=== PATIENT | female | born 1935 | race Two or more races ===

== ENCOUNTER 2017-08-24 06:10 | Day surgery (SDC) | payer MEDICARE, OTHER ==
[~2017-08-24] VITALS: Ht 144.8 cm; Wt 63.5 kg
[2017-08-24] VITALS (11 sets, daily range): BP systolic 125–158; BP diastolic 66–75
[2017-08-24] MEDS ORDERED: Propofol 200mg/20ml IV ONE (06:11)
[2017-08-24] MEDS ORDERED: Midazolam 2mg/2ml Inj ONE (06:11)
[2017-08-24] MEDS ORDERED: NS Irrig 1000ml ONE (06:11)
[2017-08-24] MEDS ORDERED: Sterile Water Irrig 1000ml IRRIG ONE (06:11)
[2017-08-24] MEDS ORDERED: fentaNYL 100 mcg/2 mL IV ONE (06:11)
[2017-08-24] MEDS ORDERED: Metoclopramide 10mg/2ml Inj ONE (06:11)
[2017-08-24] MEDS ORDERED: Bacitracin Oint 15gm Tube TOPIC ONE ×2 (06:44→06:45)
[2017-08-24] MEDS ORDERED: Dexamethasone 4mg/ml vial ONE (06:44)
[2017-08-24] MEDS ORDERED: Betadine 10% Oint 15gm TOPIC ONE (06:44)
[2017-08-24] MEDS ORDERED: Bupivacaine 0.5% Inj 30 ml vial INJ ONE (06:45)
[2017-08-24] MEDS ORDERED: Lidocaine 1% Plain 30 ml INJ ONE (06:45)
[2017-08-24] MEDS ORDERED: TIMOPTIC 0.5%1 EACH OP (07:08)
[2017-08-24] MEDS ORDERED: CRESTOR10 M2 ORAL (07:08)
[2017-08-24] MEDS ORDERED: PAZEO2.5 ML BOTH EYES (07:08)
[2017-08-24] MEDS ORDERED: LORATADINE10 M3 PO (07:08)
[2017-08-24] MEDS ORDERED: PLAVIX75 MG ORAL (07:08)
--- NOTE | 2017-08-24 07:43 | Pre-Procedure Note/Attestation ---
Pre-Procedure Note/Attestation Complete Prior to Procedure Planned Procedure: right Procedure Narrative: Bunionectomy osteotomy right foot Hammertoe correction second right digit Tenotomy and capsulotomy second right MPJ Indications for Procedure Pre-Operative Diagnosis: Hallux Valgus right foot Hammertoe deformity right foot Contracture second right MPJ Attestation I attest that I discussed the nature of the procedure; its benefits; risks and complications; and alternatives (and the risks and benefits of such alternatives ), prior to the procedure, with the patient (or the patient's legal telephone claims representative). I attest that, if there was a reasonable possibility of needing a blood transfusion, the patient (or the patient's legal telephone claims representative) was given the [place] [employer] standardized written summary, pursuant to the [place] Derek Blood Safety Act ([place] Health and Safety Code # 1645, as amended). I attest that I re-evaluated the patient just prior to the surgery and that there has been no change in the patient's H&P, except as documented below: JAYESH BUI Aug 24, 2017 07:43
--- NOTE | 2017-08-24 08:07 | Anethesia Preoperative Eval ---
Anesthesia Pre-op PMH/ROS General Date of Evaluation: Aug 24, 2017 Time of Evaluation: 08:03 Anesthesiologist: murphy ASA Score: ASA 2 Mallampati Score Class I : Soft palate, uvula, fauces, pillars visible Class II: Soft palate, uvula, fauces visible Class III: Soft palate, base of uvula visible Class IV: Only hard plate visible Mallampati Classification: Class II Surgeon: feliberto Diagnosis: bunion Surgical Procedure: bunioenctomy; osteotomy Anesthesia History: none Family History: no anesthesia problems Allergies: Coded Allergies: ASPIRIN (Verified Allergy, Severe, 08/23/17) SWOLLEN NECK, ANAPHYLACTIC SHOCK STREPTOMYCIN (Verified Allergy, Severe, 08/23/17) SWOLLEN NECK,ANAPHYLACTIC SHOCK TETRACYCLINE (Verified Allergy, Severe, 08/23/17) SWOLLEN NECK,ANAPHYLACTIC SHOCK TRIAMCINOLONE (Verified Allergy, Severe, 08/24/17) ANAPHYLACTIC SHOCK Uncoded Allergies: AMIDOPIRIN (Allergy, Severe, 08/24/17) ANAPHYLACTIC SHOCK ANALGIN (Allergy, Severe, 08/24/17) ANAPHYLACTIC SHOCK BARALGIN (Allergy, Severe, 08/23/17) SWOLLEN NECK,ANAPHYLACTIC SHOCK SINTOMIZIN (Allergy, Severe, 08/24/17) ANAPHYLACTIC SHOCK Medications: see eMAR Past Medical History Cardiovascular: Reports: HTN Pulmonary: Denies: asthma, COPD, GERALDINE, other Gastrointestinal/Genitourinary: Denies: GERD, CRI, ESRD, other Neurologic/Psychiatric: Denies: dementia, CVA, depression/anxiety, TIA, other Musculoskeletal/Integumentary: Reports: DJD Anesthesia Pre-op Phys. Exam Physician Exam Last Vital Signs Date Time Temp Pulse Resp B/P (MAP) Pulse Ox O2 Delivery O2 Flow Rate FiO2 08/24/17 06:37 97.7 62 20 158/73 100 Room Air Constitutional: NAD Neurologic: CN 2-12 intact Cardiovascular: RRR Respiratory: CTA Gastrointestinal: S/NT/ND Airway Exam Mallampati Classification 3 Mallampati Score: Class III MO: limited Neck: normal TMD: 1fb ROM: full Dentures: no upper, no lower Anesthesia Pre-op A/P Studies Pre-op Studies: EKG - sr Risk Assessment & Plan Assessment: denies cp/sob Plan: general Status Change Before Surgery: No Pre-Antibiotics Drug: ancef Given Within 1 Hr of Incision: Yes Time Given: 07:40 CJ WATKINS CRNA Aug 24, 2017 08:07
[2017-08-24] MEDS ORDERED: fentaNYL 100 mcg/2 mL IV PRN (08:15)
--- NOTE | 2017-08-24 09:18 | Brief Operative Note ---
Immediate Post Operative Note Operative Note Chief Complaint: Pain right foot Pre-op Diagnosis: Hallux Valgus right foot Hammertoe deformity right foot Contracture second right MPJ Procedure: Alexandr-Todd bunionectomy right foot Arthroplasty second right PIPJ Tenotomy and Capsulotomy second right MPJ Post-op Diagnosis: same as pre-op Surgeon: Chad Anesthesiologist: Florectia Anesthesia: general Specimen: yes Complications: none Condition: stable Fluids: 100 Estimated Blood Loss: minimal Drains: none Implant(s) used?: Yes JAYESH BUI Aug 24, 2017 09:18
--- NOTE | 2017-08-24 09:23 | Immediate Post-Op Evaluation ---
Immediate Post-Op Evalulation Immediate Post-Op Evalulation Procedure: bunionectomy rigtht Date of Evaluation: Aug 24, 2017 Time of Evaluation: 09:23 IV Fluids: 600 Blood Pressure Systolic: 135 Blood Pressure Diastolic: 71 Pulse Rate: 72 Respiratory Rate: 14 O2 Sat by Pulse Oximetry: 99 Temperature (Fahrenheit): 98.9 Nausea: No Vomiting: No Complications none Patient Status: awake, reacts, patent Hydration Status: adequate Drug: ancef Given Within 1 Hr of Incision: Yes Time Given: 07:40 CJ WATKINS CRNA Aug 24, 2017 09:23
--- NOTE | 2017-08-24 18:15 | Operative Note - Dictated ---
DATE OF OPERATION: 08/24/2017 SURGEON: Alexis Bonilla D.P.M. PREOPERATIVE DIAGNOSES: 1. Hallux abductovalgus with bunion deformity, right foot. 2. 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 3. Hammertoe deformity, second right digit. 4. Contracture, second metatarsophalangeal joint, right foot. POSTOPERATIVE DIAGNOSES: 1. Hallux abductovalgus with bunion deformity, right foot. 2. 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 3. Hammertoe deformity, second right digit. 4. Contracture, second metatarsophalangeal joint, right foot. PROCEDURE PERFORMED: 1. Alexandr bunionectomy, right foot with screw fixation. 2. Todd osteotomy, right foot with staple fixation. 3. Arthroplasty, second right proximal interphalangeal joint. 4. Tenotomy and capsulotomy, second right metatarsophalangeal joint. DESCRIPTION OF THE OPERATION: The patient was brought to the operating room and was placed on the operating room table in the supine position. General anesthesia was administered by the anesthesiologist, local anesthesia consisting of 0.5% Marcaine plain total of 20 mL was administered to the right foot. An ankle tourniquet was applied to the right lower extremity. The foot was prepped and draped in the usual sterile manner. An Esmarch bandage was then utilized to exsanguinate the blood and the right ankle tourniquet was inflated to 250 mmHg. Attention was directed to the right hallux where an approximately 6 cm dorsal linear skin incision was performed centered over the first metatarsophalangeal joint. The incision was deepened utilizing sharp and blunt dissection with care being taken to cauterize and ligate all bleeders. At the level of the capsule, a linear capsulotomy was performed. The capsule was reflected medially and laterally and the head of the first metatarsal was exposed. Utilizing a sagittal saw, the medial eminence was resected in total. The remaining bone was rasped smooth. The wound was copiously flushed utilizing sterile saline. At this point, a lateral release was performed and abductus contracture was released and it was noticed that some cartilaginous damage is present at the head of the first metatarsal. At this point, attention was directed to the neck of the first metatarsal. Utilizing a sagittal saw, a V-type osteotomy was performed with the apex distal and the arms protruding proximally. A through and through type osteotomy was carried. The capital fragment was transposed laterally and fixated onto the first metatarsal utilizing a 22 mm 2.5 headless screw, which was driven from proximal dorsal to plantar distal. At this point, the wound was copiously flushed utilizing sterile saline. Attention was then directed to the proximal phalanx where the incision was extended distally. The capsule and periosteum were reflected off the shaft of the proximal phalanx. Utilizing a sagittal saw, medial wedge was resected in total and leaving the lateral cortex intact. The bone was reduced and fixated utilizing an 8 x 8 mm staple, which was inserted through 2 mm guide holes, which were driven just distal and proximal to the osteotomy. The hallux was noted to be in rectus position. The wound was copiously flushed utilizing sterile saline. At this point, the capsule was reapproximated utilizing 3-0 Vicryl in a simple interrupted type stitch. The subcutaneous tissue was then reapproximated utilizing 4-0 Vicryl in a buried knot type stitch. The skin was then reapproximated utilizing 4-0 nylon in a simple interrupted type stitch. Attention was then directed to the second right digit where an approximately 5 cm dorsal linear skin incision was performed from just proximal to the second metatarsophalangeal joint to just distal to the second proximal interphalangeal joint. At the level of the proximal interphalangeal joint, the incision was performed in an elliptical manner to excise hyperkeratotic skin, which was overlying the proximal interphalangeal joint. The incision was deepened utilizing sharp and blunt dissection with care being taken to cauterize and ligate all bleeders. At the level of the proximal interphalangeal joint, a transverse tenotomy was performed. The extensor tendon was reflected proximally. The collateral ligaments were severed and the head of the proximal phalanx was exposed. Utilizing a sagittal saw, the head of the proximal phalanx was resected in total. The remaining bone was rasped smooth. The wound was copiously flushed utilizing sterile saline. At this point, the incision was dissected proximally at the level of the metatarsophalangeal joint. The extensor tendon was tenotomized. The capsule was severed. Utilizing a McGlamry scoop, the soft tissue attachments to the head of the second metatarsal were all freed and the toe was brought into rectus position. The wound was copiously flushed utilizing sterile saline. At this point, the extensor tendon was reapproximated distally over the proximal interphalangeal joint utilizing 4-0 Vicryl in a simple interrupted type stitch. The subcutaneous tissue was then reapproximated utilizing 4-0 Vicryl in a buried knot type stitch. The skin was then reapproximated utilizing 4-0 nylon in a simple interrupted type stitch. The wound was dressed utilizing an Adaptic 4x4 gauze, and 3-inch Kerlix. The right ankle tourniquet was deflated and vascular supply was noted to all digits right foot. The patient tolerated the procedure well and left the operating room to recovery room with all vital signs stable. Yokasta PedrazaPMaury DR: ANALISA JOB#: [id number] CC:
--- NOTE | 2017-08-24 18:20 | Diagnostic Imaging Report ---
Indication: Postop Technique: XRAY Foot Complete R Comparison: None Findings: Patient is status post hallux valgus correction with osteotomy of the first metatarsal head affixed by a single screw. Surgical fixation of the first proximal phalanx noted. There is osteotomy of the head of the second proximal phalanx. No acute fracture identified. There is subcutaneous gas, likely related to recent surgical intervention. A plantar calcaneal spur is noted. Impression: Postoperative appearance of the foot as above.
--- NOTE | 2017-08-24 19:01 | History and Physical Report ---
DATE OF ADMISSION: 08/24/2017 HISTORY OF PRESENT ILLNESS: This is an 81-year-old white female, who is admitted today for an outpatient bunionectomy and hammertoe correction of her right foot. The patient has been complaining of pain from her right foot for the past several years. She attempted conservative care utilizing shoe-gear modification and padding without any success and was consulted on surgical intervention. PAST MEDICAL HISTORY: Remarkable for hypertension, gastroesophageal reflux disease, arthritis. MEDICATIONS: Ibuprofen, statins, loratadine, acyclovir ointment, amlodipine, clopidogrel, and Voltaren gel. ALLERGIES: The patient is allergic to tetracycline, aspirin, and Kenalog. PODIATRIC PHYSICAL EXAMINATION: VASCULAR STUDIES: Dorsalis pedis and posterior tibial arteries are equally palpable measuring 2/4 bilaterally. The capillary filling time is less than 4 seconds to all digits bilaterally. Hair on skin is notice. Homans sign is negative. Mild varicosities bilateral lower extremities are noted. NEUROLOGICAL EXAMINATION: Reflexes, Achilles and patellar are equally brisk measuring 2/4 bilaterally. The sensation, proprioception, and vibrations all intact to bilateral lower extremities. Babinski is negative. Clonus is absent bilaterally. MUSCULOSKELETAL EXAMINATION: Reveals severe hallux abductovalgus with bunion deformity of her right foot. There is also a hammertoe deformities of second through fifth digits of the right foot. The hallux is under riding the second digit on the right and the second digit is dorsal medially subluxed over the hallux. Joint range of motion to the forefoot is reduced. Crepitation is noted. DERMATOLOGICAL EXAMINATION: Reveals dystrophic nails bilaterally. There are no ulcerations or scars bilaterally. Hyperkeratotic lesion over the second right proximal interphalangeal joint is noted. ASSESSMENT: 1. Hallux abductovalgus with bunion deformity, right foot. 2. Hammertoe deformity, second right digit. 3. Osteoarthritis. 4. Subluxation, second right metatarsophalangeal joint. PLAN: The patient is admitted today for an elective bunionectomy and hammertoe correction of her right foot. The risks, complications, and alternatives were all discussed with the patient. Postoperative instructions were given. Postoperative medications were dispensed to the patient. The patient elected to proceed with surgery. Alexis Bonilla D.P.M. DR: Keshawn JOB#: [id number] CC:
[2017-08-28 09:48] VITALS: BP 138/66
--- NOTE | 2017-08-28 09:48 | 48 Hour Post Anesthesia Eval ---
Post Anesthesia Evaluation Procedure: bunionectomy rigtht Date of Evaluation: Aug 28, 2017 Time of Evaluation: 09:47 Blood Pressure Systolic: 138 0: 66 Pulse Rate: 60 Respiratory Rate: 14 O2 Sat by Pulse Oximetry: 98 Airway: patent Nausea: No Vomiting: No Hydration Status: adequate Cardiopulmonary Status: stable Mental Status/LOC: patient returned to baseline Post-Anesthesia Complications: none Follow-up care needed: N/A CJ WATKINS CRNA Aug 28, 2017 09:48
== END 2017-08-24 11:30 | disposition home or self-care (01) ==
LOC: SUR 06:10 → EDBD 07:30 → SUR 11:30
DX: M20.11 Hallux valgus (acquired), right foot (principal); M19.071 Primary osteoarthritis, right ankle and foot; M20.41 Other hammer toe(s) (acquired), right foot; M20.5X1 Other deformities of toe(s) (acquired), right foot; I10 Essential (primary) hypertension; K21.9 Gastro-esophageal reflux disease without esophagitis; Z88.6 Allergy status to analgesic agent
CPT/HCPCS: 28234; 28299; 73630; 97161; C1713; G8978; G8979; G8980; J0690; J2250; J2405; J2704; J2765; J3010; J3490; 94003; 94150